=== PATIENT | male | born 1985 | race Caucasian/White ===

== ENCOUNTER → 2021-02-01 15:32 | Outpatient (CLI) | payer BC, SELFPAY ==
--- NOTE | ~2021-02-01 | XR_ITS ---
EXAMINATION: XR hip RT min 2V DATE: 02/01/2021 16:01 INDICATION: Right hip pain. TECHNIQUE: 3 views of right hip were obtained. COMPARISON: None. FINDINGS: Bone alignment is normal. No fracture. There is decreased femoral head/neck offset, which m ay be seen with femoral acetabular impingement. There is an os acetabuli. Right hip joint space is no rmal. IMPRESSION: 1. No significant arthritis. Reviewed, dictated and finalized at location B.
--- NOTE | ~2021-02-01 | XR_ITS ---
XR lumbar spine 2-3V 02/01/2021 16:01 Indication: Low back pain. Procedure: 3 views lumbar spine Comparison: No prior studies for comparison. Findings: There is dextroscoliosis centered at L2-3. Vertebral body heights are maintained. There is no acute fracture or traumatic malalignment. Mild disc narrowing at L4-5 and L5-S1. No evidence for s pondylolisthesis. Sacral foramen are symmetric. Pedicles intact. Impression: 1: Mild lumbar spondylosis with dextrocurvature of the lumbar spine. Reviewed, dictated and finalized at location A. Impression: 1: Mild lumbar spondylosis with dextrocurvature of the lumbar spine.
== END ==
PROVIDERS: PCP Emergency Medicine; Visit Provider Emergency Medicine
DX: M47.817 Spondylosis without myelopathy or radiculopathy, lumbosacral region (principal); M48.07 Spinal stenosis, lumbosacral region
CPT/HCPCS: 72100; 73502

== ENCOUNTER 2021-02-01 16:36 | Outpatient (CLI) | payer BC, SELFPAY ==
--- NOTE | 2021-02-01 | ECG_ITS ---
Measurements Intervals [place] Rate: 48 P: 42 MS: 149 QRS: -30 QRSD: 132 T: 15 QT: 444 QTc: 400 Interpretive Statements SINUS BRADYCARDIA RIGHT BUNDLE BRANCH BLOCK VOLTAGE CRITERIA FOR LVH ABNORMAL ECG Electronically Signed On 02-01-2021 19:55:05 CDT by Quan Humphrey D.O.
== END 2021-02-01 16:37 | disposition home or self-care (01) ==
LOC: ANHCARD 16:39
PROVIDERS: PCP Emergency Medicine; Visit Provider Emergency Medicine
DX: R00.1 Bradycardia, unspecified (principal); I45.10 Unspecified right bundle-branch block
CPT/HCPCS: 93005